=== PATIENT | female | born 1950 | race Caucasian/White ===

== ENCOUNTER → 2016-07-04 | Outpatient (CLI) | payer OTHER ==
[~2016-07-04] MED LIST: OMEPRAZOLE40 M1 PO; VALIUM5 MG PO
== END | disposition home or self-care (01) ==
LOC: CDC 10:38
DX: R94.31 Abnormal electrocardiogram [ECG] [EKG] (principal)
CPT/HCPCS: 93000

== ENCOUNTER 2016-07-08 08:11 | Inpatient (IN) | payer OTHER ==
[~2016-07-08] VITALS: Ht 160 cm; Wt 59.0 kg
[2016-07-08 09:04] VITALS: BP 128/85
[2016-07-08 16:50] VITALS: BP 133/76
[2016-07-08 19:30] VITALS: BP 120/66
[2016-07-08 23:53] VITALS: BP 120/66
[2016-07-09 03:36] VITALS: BP 116/66
[2016-07-09 03:50] VITALS: BP 101/65
[2016-07-09 07:42] LABS: ANION GAP 8 MEQ/L (2-14); CHLORIDE 99 MEQ/L (99-109); GFR ESTIMATE (CALCULATED) > 59 mL/min/; GLUCOSE 98 mg/dL (70-99); POTASSIUM 4.3 MEQ/L (3.7-5.4); SAMPLE HEMOLYSIS CHECK 0; SAMPLE ICTERIC CHECK 0; SAMPLE LIPEMIA CHECK 0; SODIUM 131 MEQ/L (136-147); UREA NITROGEN (BUN) 12 mg/dL (9-23)
[2016-07-09 08:30] VITALS: BP 123/74
[2016-07-09 09:18] LABS: EOSINOPHIL (%) 0.2 % (0-5); HEMATOCRIT 33.7 % (36.0-46.0); IMMATURE GRANULOCYTE (%) 0.3 % (0.0-0.7); LYMPHOCYTE COUNT 1.2 K/uL (1.0-2.8); MCH 31.3 PG (29.0-34.0); MCHC 34.4 G/DL (30.0-36.0); MCV 90.8 FL (83-99); MEAN PLAT.VOLUME 8.7 uM^3 (9.5-12.4); MONOCYTE (%) 8.6 % (3-12); MONOCYTE COUNT 0.8 K/uL (0-0.8); NEUTROPHIL (%) 76.9 % (45-76); PLATELET COUNT 259 K/uL (156-360); RBC DIS.WIDTH-CV 11.9 % (11.8-14.6); RBC DIS.WIDTH-SD 39.8 % (39-53); RED BLOOD COUNT 3.71 M/uL (3.80-5.20)
[2016-07-09 09:20] LABS: WHITE BLOOD COUNT 9.1 K/uL (4.1-10.2)
[2016-07-09 11:15] VITALS: BP 105/65
[2016-07-09 19:34] VITALS: BP 114/55
[2016-07-09 23:20] VITALS: BP 110/57
[2016-07-10 03:32] VITALS: BP 118/73
[2016-07-10 08:00] VITALS: BP 137/84
[2016-07-10 08:05] LABS: EOSINOPHIL (%) 0.4 % (0-5); HEMATOCRIT 33.8 % (36.0-46.0); IMMATURE GRANULOCYTE (%) 0.4 % (0.0-0.7); INSTRUMENT ABS NEUTROPHIL CT 6.3 K/uL; LYMPHOCYTE COUNT 0.7 K/uL (1.0-2.8); MCH 31.1 PG (29.0-34.0); MCV 91.4 FL (83-99); MEAN PLAT.VOLUME 9.2 uM^3 (9.5-12.4); MONOCYTE COUNT 0.7 K/uL (0-0.8); NEUTROPHIL (%) 81.1 % (45-76); NEUTROPHIL COUNT 6.3 K/uL (1.8-6.4); PLATELET COUNT 237 K/uL (156-360); RBC DIS.WIDTH-CV 12.1 % (11.8-14.6); RBC DIS.WIDTH-SD 40.6 % (39-53); WHITE BLOOD COUNT 7.7 K/uL (4.1-10.2)
[2016-07-10 08:14] LABS: CHLORIDE 102 mEq/L (99-109); SODIUM 135 mEq/L (136-147)
[2016-07-10 08:16] LABS: GLUCOSE 96 mg/dL (70-99)
[2016-07-10 08:17] LABS: ANION GAP 8 MEQ/L (2-14)
[2016-07-10 08:20] LABS: GFR ESTIMATE (CALCULATED) > 59 mL/min/
[2016-07-10 08:21] LABS: UREA NITROGEN (BUN) 8 mg/dL (9-23)
[2016-07-10 11:59] VITALS: BP 117/70
== END 2016-07-10 15:14 | disposition home or self-care (01) | DRG 742 ==
LOC: 2SOUTH → 2EAST 16:06
PROVIDERS: Obstetrics & Gynecology Gynecology
DX: N81.4 Uterovaginal prolapse, unspecified (principal); E87.1 Hypo-osmolality and hyponatremia
CPT/HCPCS: 80048; 85025; 87086; C1781; J0330; J0690; J1100; J1170; J1200; J1650; J1885; J2250; J2405; J2710; J3010; J7120